=== PATIENT | female | born 1990 | race African-American/Black ===

== ENCOUNTER 2023-05-30 23:37 | Emergency (ER) | payer OTHER ==
[~2023-05-30] VITALS: Ht 167.6 cm; Wt 68.0 kg
[2023-05-30 23:44] VITALS: BP 140/96; PULSE 106; RESP 18; TEMP 98.2; O2SAT 99
== END 2023-05-31 02:48 | disposition left against medical advice (07) ==
LOC: ER 23:37
DX: M79.642 Pain in left hand (principal); Z53.21 Procedure and treatment not carried out due to patient leaving prior to being seen by health care provider
CPT/HCPCS: 99281